=== PATIENT | female | born 1950 | race African-American/Black ===

== ENCOUNTER 2025-04-12 21:53 | Emergency (ER) | payer MEDICAID, MEDICARE ==
[~2025-04-12] VITALS: Ht 175.3 cm; Wt 96.7 kg
[2025-04-12 22:03] VITALS: O2SAT 100
[2025-04-12] MEDS: FAMOTIDINE 20MG TABLET PO ONE (23:02)
[2025-04-12] MEDS: DIPHENHYDRAMINE 25MG CAPSULE PO ONE (23:02)
[2025-04-12] MEDS ORDERED: FAMO-135 MT (23:21)
[2025-04-12] MEDS ORDERED: DIPH25CA83 MT (23:21)
[2025-04-12] MEDS ORDERED: HYDR28CR97 TP (23:21)
[2025-04-12 23:51] VITALS: BP 188/77; PULSE 76; RESP 16; TEMP 37.1; O2SAT 100
== END 2025-04-12 23:52 | disposition home or self-care (01) ==
LOC: ER 21:53
DX: L25.9 Unspecified contact dermatitis, unspecified cause (principal); Z79.899 Other long term (current) drug therapy; Z98.890 Other specified postprocedural states
CPT/HCPCS: 99283; Q0163